=== PATIENT | female | born 1950 | race Caucasian/White ===

== ENCOUNTER → 2017-02-13 | Outpatient (CLI) | payer MEDICARE, MEDICAID ==
[~2017-02-13] MED LIST: ADENOSINE 67 MG in GIVE UN-DILUTED 0 ML IV ONE; ADENOSINE 90 MG/30 ML INJ IV ONE
== END | disposition home or self-care (01) ==
LOC: Rad HDHVI 10:25
PROVIDERS: ATTEND Internal Medicine Cardiovascular Disease
DX: I10 Essential (primary) hypertension (principal); E80.0 Hereditary erythropoietic porphyria; R42 Dizziness and giddiness; Z82.49 Family history of ischemic heart disease and other diseases of the circulatory system
CPT/HCPCS: 78452; 93005; 96374; 96375; A9500; J0153

== ENCOUNTER → 2018-01-27 | Outpatient (CLI) | payer MEDICARE, MEDICAID ==
[2018-01-27 16:10] LABS: Urine Bacteria FEW /hpf (None Seen); Urine Blood Negative /uL (Negative); Urine Hyaline Cast FEW /lpf (0 - 2); Urine Mucus FEW (None Seen); Urine Specific Gravity 1.015 (1.001-1.035); Urine WBC 448 /hpf (0 - 5); Urine WBC Clumps PRESENT /hpf (None Seen)
== END | disposition home or self-care (01) ==
LOC: LAB 11:06
PROVIDERS: ATTEND Internal Medicine
DX: N39.0 Urinary tract infection, site not specified (principal); I10 Essential (primary) hypertension; E78.00 Pure hypercholesterolemia, unspecified; E03.9 Hypothyroidism, unspecified; E11.9 Type 2 diabetes mellitus without complications
CPT/HCPCS: 81001; 87086

== ENCOUNTER → 2018-02-16 | Outpatient (CLI) | payer MEDICARE, MEDICAID ==
[2018-02-16 12:13] LABS: Basophils # (auto) 0.1 uL; Basophils % (auto) 1.3 % (0.0-2.0); Eosinophils # (auto) 0.1 uL; Hematocrit 43.5 % (36.0-46.0); Hemoglobin 14.8 g/dL (12.2-16.2); Lymphocytes # (auto) 1.6 uL; Lymphocytes % (auto) 21.6 % (10.0-50.0); Mean Corpuscular Hemoglobin 32.6 pg (28.0-32.0); Mean Corpuscular Volume 95.9 fL (80.0-100.0); Monocytes # (auto) 0.5 uL; Monocytes % (auto) 6.4 % (0.0-12.0); Neutrophils % (auto) 68.7 % (37.0-80.0); Nucleated Red Blood Cells % 0.6 %; Platelet Count (auto) 256 10^3/uL (140-450); Red Blood Cells 4.54 10^6/uL (4.0-5.20); Red Cell Distribution Width 12.8 % (11.8-14.3); White Blood Cell 7.3 10^3/uL (4.4-10.8)
[2018-02-16 12:14] LABS: Urine Blood Negative /uL (Negative); Urine Specific Gravity 1.013 (1.001-1.035)
[2018-02-16 12:24] LABS: Albumin 4.1 g/dL (3.4-5.0); BUN/Creatinine Ratio 18.4; Bilirubin, Total 0.3 mg/dL (0.2-1.0); Calcium 9.7 mg/dL (8.5-10.1); Potassium 3.9 mmol/L (3.5-5.1); Total Protein 7.6 g/dL (6.4-8.2)
[2018-02-16 12:26] LABS: Free T4 (Free Thyroxine) 1.15 ng/dL (0.89-1.76)
== END | disposition home or self-care (01) ==
LOC: LAB 08:32
PROVIDERS: ATTEND Internal Medicine
DX: E78.5 Hyperlipidemia, unspecified (principal); D64.9 Anemia, unspecified; I10 Essential (primary) hypertension; E11.9 Type 2 diabetes mellitus without complications; E55.9 Vitamin D deficiency, unspecified; E03.9 Hypothyroidism, unspecified; D51.9 Vitamin B12 deficiency anemia, unspecified; N39.0 Urinary tract infection, site not specified
CPT/HCPCS: 36415; 80053; 80061; 81003; 82306; 82607; 83036; 84439; 84443; 85025

== ENCOUNTER → 2018-04-07 | Outpatient (CLI) | payer MEDICARE, MEDICAID ==
[2018-04-07 12:43] LABS: Alanine Aminotransferase 51 U/L (13-56); Albumin 4.1 g/dL (3.4-5.0); Alkaline Phosphatase 87 U/L (45-117); Aspartate Aminotransferase 27 U/L (15-37); Bilirubin, Direct < 0.1 mg/dL (0-0.2); Bilirubin, Total 0.5 mg/dL (0.2-1.0); Total Protein 7.5 g/dL (6.4-8.2)
== END | disposition home or self-care (01) ==
LOC: LAB 10:57
PROVIDERS: ATTEND Internal Medicine Cardiovascular Disease
DX: K74.1 Hepatic sclerosis (principal); E03.9 Hypothyroidism, unspecified; I10 Essential (primary) hypertension; E78.5 Hyperlipidemia, unspecified; E11.9 Type 2 diabetes mellitus without complications; E78.00 Pure hypercholesterolemia, unspecified
CPT/HCPCS: 36415; 80076; 84439; 84443

== ENCOUNTER → 2018-07-14 | Outpatient (CLI) | payer MEDICARE, MEDICAID ==
[2018-07-14 17:23] LABS: Albumin 3.7 g/dL (3.4-5.0); BUN/Creatinine Ratio 11.8; Calcium 8.7 mg/dL (8.5-10.1)
[2018-07-14 17:37] LABS: Bilirubin, Total 0.4 mg/dL (0.2-1.0); Total Protein 7.2 g/dL (6.4-8.2)
== END | disposition home or self-care (01) ==
LOC: LAB 11:04
PROVIDERS: ATTEND Internal Medicine Cardiovascular Disease
DX: E78.5 Hyperlipidemia, unspecified (principal); I10 Essential (primary) hypertension
CPT/HCPCS: 36415; 80053; 80061

== ENCOUNTER → 2019-04-07 | Outpatient (CLI) | payer MEDICAID, MEDICARE ==
--- NOTE | 2019-04-07 14:44 | NUR ---
PT. TO CLINIC FOR CT OF BRAIN WITH AND WITHOUT CONTRAST. PT. ALSO SCHEDULED FOR ECHO. ORDERS RECEIVED AND CARRIED OUT.
[2019-04-07 14:50] VITALS: BP 143/66
--- NOTE | 2019-04-07 14:50 | NUR ---
IV insertion IV access obtained, via clean sterile technique by inserting 22 gauge catheter at after attempt(s). IV secured properly. No trauma to site. Patient tolerated procedure well. STAT CREAT. SENT.
--- NOTE | 2019-04-07 15:25 | NUR ---
PT. TO ECHO VIA AMBULATION WITH TECH.
--- NOTE | 2019-04-07 16:00 | NUR ---
PT. BACK TO CLINIC FROM ECHO.
--- NOTE | 2019-04-07 16:40 | NUR ---
PT. TO AND FR0M CT. TOLERATED PROCEDURE WELL.
[2019-04-07 16:50] VITALS: BP 143/63
--- NOTE | 2019-04-07 16:50 | NUR ---
IV removal IV DC'd with sterile technique, catheter fully intact. Pressure dressing applied to site. Patient tolerated procedure well. Discharged with aftercare instructions per MD. NOTE: PT. INSTRUCTED TO INCREASE WATER INTAKE FOR NEXT 24 HRS.
== END | disposition home or self-care (01) ==
LOC: Rad HDHVI 14:39
PROVIDERS: ATTEND Internal Medicine Cardiovascular Disease
DX: I08.1 Rheumatic disorders of both mitral and tricuspid valves (principal); R94.4 Abnormal results of kidney function studies; R55 Syncope and collapse; I10 Essential (primary) hypertension; E78.5 Hyperlipidemia, unspecified; I67.2 Cerebral atherosclerosis
CPT/HCPCS: 36415; 70470; 82565; 93306; G0463; Q9967

== ENCOUNTER → 2019-04-13 | Outpatient (CLI) | payer MEDICARE | END | disposition home or self-care (01) | LOC: Rad HDHVI 15:16 | PROVIDERS: ATTEND Internal Medicine Cardiovascular Disease | DX: E78.5 Hyperlipidemia, unspecified (principal); R55 Syncope and collapse | CPT/HCPCS: 93880 ==

== ENCOUNTER → 2019-05-17 | Outpatient (CLI) | payer MEDICARE ==
[~2019-05-17] VITALS: Ht 167.6 cm; Wt 81.6 kg
[~2019-05-17] MED LIST changes: -ADENOSINE 67 MG in GIVE UN-DILUTED 0 ML IV ONE; +ADENOSINE 69 MG in GIVE UN-DILUTED 0 ML IV ONE
== END | disposition home or self-care (01) ==
LOC: Rad HDHVI 13:23
PROVIDERS: ATTEND Internal Medicine Cardiovascular Disease
DX: I10 Essential (primary) hypertension (principal); E78.00 Pure hypercholesterolemia, unspecified
CPT/HCPCS: 78452; 93005; 96374; 96375; A9500; J0153

== ENCOUNTER → 2020-09-05 | Outpatient (CLI) | payer MEDICARE | END | disposition home or self-care (01) | LOC: Rad HDHVI 13:27 | PROVIDERS: ATTEND Internal Medicine Cardiovascular Disease | DX: I08.3 Combined rheumatic disorders of mitral, aortic and tricuspid valves (principal); I49.5 Sick sinus syndrome; R55 Syncope and collapse | CPT/HCPCS: 93306 ==

== ENCOUNTER → 2021-08-27 | Outpatient (CLI) | payer MEDICARE, OTHER ==
[~2021-08-27] VITALS: Ht 167.6 cm; Wt 74.8 kg
[~2021-08-27] MED LIST changes: +ADENOSINE 63 MG in GIVE UN-DILUTED 0 ML IV ONE; -ADENOSINE 69 MG in GIVE UN-DILUTED 0 ML IV ONE
== END | disposition home or self-care (01) ==
LOC: Rad HDHVI 13:18
PROVIDERS: ATTEND Internal Medicine Cardiovascular Disease
DX: I10 Essential (primary) hypertension (principal); E78.5 Hyperlipidemia, unspecified; E11.9 Type 2 diabetes mellitus without complications; Z82.49 Family history of ischemic heart disease and other diseases of the circulatory system
CPT/HCPCS: 78452; 93005; 96374; 96375; A9500; J0153

== ENCOUNTER 2024-09-25 23:35 | Inpatient (IN) | payer OTHER, MEDICAID ==
[~2024-09-25] VITALS: Ht 167.6 cm; Wt 73.4 kg
[~2024-09-25 23:35] MED LIST changes: +ACET300T51 PO; -ADENOSINE 63 MG in GIVE UN-DILUTED 0 ML IV ONE; -ADENOSINE 90 MG/30 ML INJ IV ONE; +BACL10TA PO; +DONETAB6 PO; +FURO20TA3 PO; +TEMA30CA PO
--- NOTE | 2024-09-25 23:54 | ECG ---
[facility] Test Date: 2024-09-25 Test Time: 23:53:02 Pat Name: ERIKA RHOADES Department: ER Room: 0298T Gender: F [employer]: OSBALDO : 1950 Requested By: MAURO PAK Order Number: [id number] Reading MD: Sebastian Angela Measurements Intervals [place] Rate: 75 P: 0 MD: 0 QRS: 37 QRSD: 91 T: 26 QT: 375 QTc: 419 Interpretive Statements Atrial fibrillation Electronically Signed On 09-28-2024 13:05:37 PST by Sebastian Angela Please click the below link to view image of tracing.
--- NOTE | 2024-09-25 23:58 | ED.PDOC ---
HPI Comments 74-year-old female came to ER due to shortness of breath. Patient has history of hypertension. States for the past 2 weeks she has been having intermittent episodes of shortness of breath. Her watch monitor showed that she was having AFib. Patient denies ever being diagnosed with AFib. Denies any acute chest pains. Patient is saturating 99% on room air Chief Complaint: Shortness of Breath Time Seen by MD: 23:57 Reviewed Notes: Nurses Notes Allergies: Coded Allergies: No Known Drug Allergy (Verified Allergy, Unknown, 02/13/17) Information Source: Patient Mode of Arrival: Ambulatory Severity: Moderate Timing: Weeks Duration: Intermittent Prehospital treatment: None Quality: Other (Palpitations) Cardiac Risk Factors: HTN PE Risk Factors: None Associated Signs and Symptoms: SOB Past Medical History PAST MEDICAL HISTORY: HTN Surgical History: Denies all surgeries [employer] History: Denies all [employer] Hx Family History Family History: Reviewed,noncontributory to illness Social History Smoker: Non-Smoker Alcohol: Denies ETOH Use Drugs: Denies Drug Use Lives In: Home Constitutional: denies: chills, diaphoresis, fatigue, fever, malaise, sweats, weakness, others EENTM: denies: blurred vision, double vision, ear bleeding, ear discharge, ear drainage, ear pain, ear ringing, eye pain, eye redness, hearing loss, mouth pain, mouth swelling, nasal discharge, nose bleeding, nose congestion, nose pain, photophobia, tearing, throat pain, throat swelling, voice changes, others Respiratory: reports: SOB at rest, shortness of breath; denies: cough, hemoptysis, orthopnea, SOB with excertion, stridor, wheezing, others Cardiovascular: reports: palpitations; denies: chest pain, dizzy spells, diaphoresis, Dyspnea on exertion, edema, irregular heart beat, left arm pain, lightheadedness, PND, syncope, others Gastrointestinal: denies: abdomen distended, abdominal pain, blood streaked bowels, constipated, diarrhea, dysphagia, difficulty swallowing, hematemesis, melena, nausea, poor appetite, poor fluid intake, rectal bleeding, rectal pain, vomiting, others Genitourinary: denies: abnormal vagina bleeding, burning, dyspareunia, dysuria, flank pain, frequency, hematuria, incontinence, pain, , vagina discharge, urgency, others Neurological: denies: dizziness, fainting, headache, left sided numbness, left sided weakness, numbness, paresthesia, pre-existing deficit, right sided numbness, right sided weakness, seizure, speech problems, tingling, tremors, weakness, others Musculoskeletal: denies: back pain, gout, joint pain, joint swelling, muscle pain, muscle stiffness, neck pain, others Integumetry: denies: bruises, change in color, change in hair/nails, dryness, laceration, lesions, lumps, rash, wounds, others Allergic/Immunocompromised: denies: Difficulty Healing, Frequent Infections, Hives, Itching, others Hematologic/Lymphatic: denies: anemia, blood clots, easy bleeding, easy bruising, swollen glands, others Endocrine: denies: excessive hunger, excessive sweating, excessive thirst, excessive urination, flushing, intolerance to cold, intolerance to heat, unexplained weight gain, unexplained weight loss, others Psychiatric: reports: anxiety; denies: bipolar disorder, depression, hopeless, panic disorder, schizophrenia, sleepless, suicidal, others Physical Exam General Appearance: No Apparent Distress, Normal HEENT: Normal ENT Inspection, Pharynx Normal, TMs Normal Neck: Full Range of Motion, Non-Tender, Normal, Normal Inspection Respiratory: Chest Non-Tender, Lungs Clear, No Accessory Muscle Use, No Respiratory Distress, Normal Breath Sounds Cardiovascular: No Edema, No JVD, No Murmur, No Gallop, Normal Peripheral Pulses, Regular Rate/Rhythm Breast Exam: Deferred Gastrointestinal: No Organomegaly, Non Tender, No Pulsatile Mass, Normal Bowel Sounds, Soft Genitalia: Deferred Pelvic: Deferred Rectal: Deferred Extremities: No calf tenderness, Normal capillary refill, Normal inspection, Normal range of motion, Non-tender, No pedal edema Musculoskeletal : Apperance: Normal 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 Was a procedure done?: No CP Differential Dx Differential Diagnosis: A-fib, Angina, Anxiety / Panic Attack, Electrolyte Disorder, Hyperventilation, Pulmonary Embolus, Sinus Tachycardia Differential Diagnosis: Angina, Chest Wall Pain, Costochondritis, Esophageal reflux/spasm, Gastritis, Myocardial Infarction X-Ray, Labs, Meds, VS Vital Signs Date Time Temp Pulse Resp B/P (MAP) Pulse Ox O2 Delivery O2 Flow Rate FiO2 09/26/24 00:48 76 09/26/24 00:41 75 09/25/24 23:53 75 09/25/24 23:43 97.6 83 20 150/88 (108) 97 09/25/24 23:43 20 99 Room Air* 0 21 Lab Test 09/26/24 00:01 Range/Units White Blood Count 10.9 H 4.4-10.8 10^3/uL Red Blood Count 4.04 4.0-5.20 10^6/uL Hemoglobin 12.9 12.2-16.2 g/dL Hematocrit 38.3 36.0-46.0 % Mean Corpuscular Volume 94.7 80.0-100.0 fL Mean Corpuscular Hemoglobin 32.0 28.0-32.0 pg Mean Corpuscular Hemoglobin Concent 33.8 32.0-36.0 g/dL Red Cell Distribution Width 13.8 11.8-14.3 % Platelet Count 228 140-450 10^3/uL Mean Platelet Volume 10.8 6.9-10.8 fL Neutrophils (%) (Auto) 70.5 37.0-80.0 % Lymphocytes (%) (Auto) 21.0 10.0-50.0 % Monocytes (%) (Auto) 6.4 0.0-12.0 % Eosinophils (%) (Auto) 0.9 0.0-7.0 % Basophils (%) (Auto) 1.2 0.0-2.0 % Neutrophils # (Auto) 7.7 1.6-8.6 10 ^3/uL Lymphocytes # (Auto) 2.3 0.4-5.4 10 ^3/uL Monocytes # (Auto) 0.7 0-1.3 10 ^3/uL Eosinophils # (Auto) 0.1 0-0.8 10 ^3/uL Basophils # (Auto) 0.1 0-0.2 10 ^3/uL Nucleated Red Blood Cells 0.1 % Prothrombin Time 10.9 9.3-11.8 sec Prothrombin Time INR 1.03 0.9-1.15 Activated Partial Thromboplast Time 24.5 24.5-34.5 SEC Sodium Level 138 136-145 mmol/L Potassium Level 3.5 3.5-5.1 mmol/L Chloride Level 104 98-107 mmol/L Carbon Dioxide Level 22 20-31 mmol/L Anion Gap 12 5-15 Blood Urea Nitrogen 16 9-23 mg/dL Creatinine 1.22 H 0.550-1.02 mg/dL Glomerular Filtration Rate Calc 47 >90 mL/min BUN/Creatinine Ratio 13.1 10.0-20.0 Serum Glucose 94 74-106 mg/dL Calcium Level 10.2 8.7-10.4 mg/dL Total Bilirubin 0.5 0.2-1.0 mg/dL Aspartate Amino Transferase (AST) 10 L 13-40 U/L Alanine Aminotransferase (ALT) < 9 7-40 U/L Alkaline Phosphatase 122 H 46-116 U/L Troponin I High Sensitivity 12 </=34 ng/L B-Type Natriuretic Peptide 90.76 0-100 pg/mL Total Protein 7.5 5.7-8.2 g/dL Albumin 4.7 3.2-4.8 g/dL Thyroid Stimulating Hormone (TSH) 4.71 0.55-4.78 uIU/mL Free Thyroxine (T4) Calculated Pending CHEST RADIOGRAPH Indication: SOB Technique: Single frontal view of the chest was obtained COMPARISON: None FINDINGS: Lines and Tubes: None Lungs: Clear Pleura: No effusion. no pneumothorax. Cardiomediastinal contours: Unremarkable Bones: Unremarkable IMPRESSION: 1. No acute disease. Time of 1ST Reevaluation: 23:53 Reevaluation 1ST: Unchanged Patient Education/Counseling: Diagnosis, Treatment Family Education/Counseling: No Family Present Departure 1 Departure Time of Disposition: 01:22 Impression: Primary Impression: New onset atrial fibrillation Additional Impression: Congestive heart disease Disposition: 09 ADMITTED INPATIENT Condition: Guarded Critical Care Note Critical Care Time?: Yes (35 min-critical care time only) Critical care comment: Total critical care time: Approximately 36 minutes Due to a high probability of clinically significant, life threatening deteriora tion, the patient required my highest level of preparedness to intervene emergently and I personally spent this critical care time directly and personally managing the patient. This critical care time included obtaining a history; examining the patient; pulse oximetry; ordering and review of studies; arranging urgent treatment with development of a management plan; evaluation of patient's response to treatment; frequent reassessment; and, discussions with other providers. This critical care time was performed to assess and manage the high probability of imminent, life-threatening deterioration that could result in multi-organ failure. It was exclusive of separately billable procedures and treating other patients. Stability Stability form required: No Heart Score Heart Score: Heart Score Response (Comments) Value History Moderate Suspicious 1 EKG Repolarization Disturb 1 Age >65 2 Risk Factors 1 or 2 risk factors 1 Troponin Normal limit 0 Total 5 I personally scribed for MAURO PAK MD ([email or web address]) on 09/25/24 at 23:58. Electronically submitted by Kal Burns ([email or web address]). I personally scribed for MAURO PAK MD ([email or web address]) on 09/26/24 at 00:41. Electronically submitted by Kal Burns ([email or web address]). MAURO PAK MD Sep 25, 2024 23:58
--- NOTE | 2024-09-26 00:22 | DVH ---
CHEST RADIOGRAPH Indication: SOB Technique: Single frontal view of the chest was obtained COMPARISON: None FINDINGS: Lines and Tubes: None Lungs: Clear Pleura: No effusion. No pneumothorax. Cardiomediastinal contours: Unremarkable Bones: Unremarkable IMPRESSION: 1. No acute disease.
[2024-09-26 00:25] LABS: Basophils # (auto) 0.1 10 ^3/uL (0-0.2); Basophils % (auto) 1.2 % (0.0-2.0); Eosinophils # (auto) 0.1 10 ^3/uL (0-0.8); Eosinophils % (auto) 0.9 % (0.0-7.0); Hematocrit 38.3 % (36.0-46.0); Hemoglobin 12.9 g/dL (12.2-16.2); Lymphocytes # (auto) 2.3 10 ^3/uL (0.4-5.4); Mean Corpuscular Hgb Conc. 33.8 g/dL (32.0-36.0); Mean Corpuscular Volume 94.7 fL (80.0-100.0); Monocytes # (auto) 0.7 10 ^3/uL (0-1.3); Monocytes % (auto) 6.4 % (0.0-12.0); Neutrophils # (auto) 7.7 10 ^3/uL (1.6-8.6); Neutrophils % (auto) 70.5 % (37.0-80.0); Nucleated Red Blood Cells % 0.1 %; Platelet Count (auto) 228 10^3/uL (140-450); Red Blood Cells 4.04 10^6/uL (4.0-5.20); Red Cell Distribution Width 13.8 % (11.8-14.3); White Blood Cell 10.9 10^3/uL (4.4-10.8)
[2024-09-26 00:39] LABS: Albumin 4.7 g/dL (3.2-4.8); Anion Gap 12 (5-15); BUN/Creatinine Ratio 13.1 (10.0-20.0); Blood Urea Nitrogen 16 mg/dL (9-23); Calcium 10.2 mg/dL (8.7-10.4); Carbon Dioxide 22 mmol/L (20-31); Chloride 104 mmol/L (98-107); Glucose 94 mg/dL (74-106); Potassium 3.5 mmol/L (3.5-5.1); Sodium 138 mmol/L (136-145)
[2024-09-26 00:40] LABS: Bilirubin, Total 0.5 mg/dL (0.2-1.0); Total Protein 7.5 g/dL (5.7-8.2)
[2024-09-26 00:42] LABS: INR 1.03 (0.9-1.15); Partial Thromboplastin Time 24.5 SEC (24.5-34.5); Prothrombin Time 10.9 sec (9.3-11.8)
[2024-09-26 00:54] LABS: Alanine Aminotransferase < 9 U/L (7-40); Alkaline Phosphatase 122 U/L (46-116); Aspartate Aminotransferase 10 U/L (13-40)
[2024-09-26 07:05] VITALS: PULSE 85; RESP 16; O2SAT 98
[2024-09-26 08:45] VITALS: RESP 17; O2SAT 99
--- NOTE | 2024-09-26 11:00 | DVHHP2 ---
History of Present Illness History of Present Illness 74-year-old female w PMHx HTN came to ER due to shortness of breath. States for the past 2 weeks she has been having intermittent episodes of shortness of breath. She has been unable to sleep due to orthopnea. She was experiencing shortness of breath, dyspnea on exertion NYHA 2-3, mildly worsening leg swelling bilaterally, orthopnea. Her watch monitor showed that she was having irregular heartbeat . She has family history of heart disease but herself has never been diagnosed with heart failure, never had MS, and no history of AFib/arrhyth mias/irregular rhythms. Denies any acute chest pains. She had mild upper respiratory symptoms few days ago including runny nose, dry cough. Patient denies sick contacts, nausea and vomiting, diarrhea or constipation, abdominal pains, decreased p.o. tolerance,. Patient denies any illicit substance abuse. Review of Systems Review of Systems As per HPI Allergies: Coded Allergies: No Known Drug Allergy (Verified Allergy, Unknown, 02/13/17) Exam Vital Signs Vital Signs Date Time Temp Pulse Resp B/P (MAP) Pulse Ox O2 Delivery O2 Flow Rate FiO2 09/26/24 08:55 97.8 91 16 102/72 (82) 98 97.8 09/26/24 08:45 Room Air* 0 21 Exam GEN: Healthy appearing, well-developed, NAD. HEENT: NC/AT; MMM. CV: RRR, no m/r/g. LUNGS: Rales lower lobes bilaterally. ABD: Soft, NT/ND, NBS, no masses or organomegaly. EXT: skin Warm, well perfused. no rashes. Pitting edema 1+ bilaterally NEURO: Ambulating with no limitations. No focal deficits. Labs/Xrays Labs Test 09/26/24 01:24 09/26/24 00:01 Range/Units Troponin I High Sensitivity 12 </=34 ng/L White Blood Count 10.9 H 4.4-10.8 10^3/uL Red Blood Count 4.04 4.0-5.20 10^6/uL Hemoglobin 12.9 12.2-16.2 g/dL Hematocrit 38.3 36.0-46.0 % Mean Corpuscular Volume 94.7 80.0-100.0 fL Mean Corpuscular Hemoglobin 32.0 28.0-32.0 pg Mean Corpuscular Hemoglobin Concent 33.8 32.0-36.0 g/dL Red Cell Distribution Width 13.8 11.8-14.3 % Platelet Count 228 140-450 10^3/uL Mean Platelet Volume 10.8 6.9-10.8 fL Neutrophils (%) (Auto) 70.5 37.0-80.0 % Lymphocytes (%) (Auto) 21.0 10.0-50.0 % Monocytes (%) (Auto) 6.4 0.0-12.0 % Eosinophils (%) (Auto) 0.9 0.0-7.0 % Basophils (%) (Auto) 1.2 0.0-2.0 % Neutrophils # (Auto) 7.7 1.6-8.6 10 ^3/uL Lymphocytes # (Auto) 2.3 0.4-5.4 10 ^3/uL Monocytes # (Auto) 0.7 0-1.3 10 ^3/uL Eosinophils # (Auto) 0.1 0-0.8 10 ^3/uL Basophils # (Auto) 0.1 0-0.2 10 ^3/uL Nucleated Red Blood Cells 0.1 % Prothrombin Time 10.9 9.3-11.8 sec Prothrombin Time INR 1.03 0.9-1.15 Activated Partial Thromboplast Time 24.5 24.5-34.5 SEC Sodium Level 138 136-145 mmol/L Potassium Level 3.5 3.5-5.1 mmol/L Chloride Level 104 98-107 mmol/L Carbon Dioxide Level 22 20-31 mmol/L Anion Gap 12 5-15 Blood Urea Nitrogen 16 9-23 mg/dL Creatinine 1.22 H 0.550-1.02 mg/dL Glomerular Filtration Rate Calc 47 >90 mL/min BUN/Creatinine Ratio 13.1 10.0-20.0 Serum Glucose 94 74-106 mg/dL Calcium Level 10.2 8.7-10.4 mg/dL Total Bilirubin 0.5 0.2-1.0 mg/dL Aspartate Amino Transferase (AST) 10 L 13-40 U/L Alanine Aminotransferase (ALT) < 9 7-40 U/L Alkaline Phosphatase 122 H 46-116 U/L B-Type Natriuretic Peptide 90.76 0-100 pg/mL Total Protein 7.5 5.7-8.2 g/dL Albumin 4.7 3.2-4.8 g/dL Thyroid Stimulating Hormone (TSH) 4.71 0.55-4.78 uIU/mL Assessment/Plan Assessment/Plan #Acute systolic heart failure likely -- Tn neg, BNP upper limit of normal, rales BL, 1+ pitting edemaBL, dyspnea, orthopnea, HOLLY NYHA 2-3, - Lasix 20 IV b.i.d., echo, outpatient cardiology unless echo with significant abnormal findings #AFib, without RVR- chads Vasc 3, rate controolled , no urgent need for betablockers. start full-dose Lovenox. may need outpatient DOACs. #Leukocytosis--WBC 10.8, this could be from recent URI, we will monitor. #CKD-creatinine 1.22 on admit, similar to prior levels, patient has CKD, full need outpatient follow-up with Nephrology #Uncontrolled hypertension we will monitor and add medications as needed Diet cardiac GI prophylaxis-tolerating p.o. DVT prophylaxis full-dose Lovenox for AFib Med tele Full code Plan discussed with: Patient My Orders Orders - HARRISON TRAYLOR MD Procedure Category Date Status Time Admit ADMIT 09/26/24 Transmitted 10:48 Code Status CODE 09/26/24 Transmitted 10:48 Date of Service: Sep 26, 2024 Billing Provider: HARRISON TRAYLOR MD Common Visit Codes: [id number] INP/OBS CARE (HIGH) HARRISON TRAYLOR MD Sep 26, 2024 11:00
[2024-09-26] MEDS: DONEPEZIL HYDROCHLORIDE 5 MG TAB PO ONE (11:29)
[2024-09-26 16:22] VITALS: BP 153/75; PULSE 80; RESP 20; TEMP 97.9; O2SAT 98
[2024-09-26] MEDS ORDERED: HYDR-4902 PO (17:03)
[2024-09-26] MEDS: FUROSEMIDE 20 MG/2 ML VIAL IV SCH (17:59)
[2024-09-26 20:00] VITALS: PULSE 111; PULSE 80
[2024-09-26 21:00] VITALS: BP 155/70; PULSE 73; RESP 19; TEMP 98.2; O2SAT 96
[2024-09-26 21:35] VITALS: BP 137/60; PULSE 88; RESP 18; O2SAT 98
[2024-09-26 22:08] LABS: Urine Bacteria None Seen /hpf (None Seen)
[2024-09-26 22:21] LABS: Urine Blood 1+ /uL (Negative); Urine Clarity Ex.Turbid (Clear); Urine Protein, UAD Negative (Negative); Urine Specific Gravity 1.006 (1.001-1.035); Urine Squamous Epithelial Cell None Seen /hpf (<5); Urine Urobilinogen Normal (Negative); Urine WBC 1859 /hpf (0 - 5); Urine WBC Clumps PRESENT /hpf (None Seen); Urine pH 5.5 (5.0-9.0)
[2024-09-26 22:23] LABS: Urine Color Light-Yellow (Yellow)
[2024-09-26 22:34] LABS: Amphetamine Screen, Urine Neg (NEGATIVE); Barbiturate Scree,Urine Neg (NEGATIVE); Benzodiazephine Screen, Urine Neg (NEGATIVE); Cannabinoid Screen, Urine Neg (NEGATIVE); Cocaine Screen, Urine Neg (NEGATIVE); Opiate Scree,Urine Neg (NEGATIVE); Phencyclidine Screen, Urine Neg (NEGATIVE)
[2024-09-26] MEDS: MELATONIN 5 MG TAB PO SCH (22:47)
[2024-09-27] VITALS (8 sets, daily range): BP systolic 119–161; BP diastolic 51–96; PULSE 70–92; RESP 14–19; TEMP 97.5–98.4; O2SAT 96–100
[2024-09-27] MEDS: cefTRIAXone 1GM/50ML D5W 50 ML IV SCH (03:16)
[2024-09-27 11:04] LABS: Chloride 103 mmol/L (98-107); Potassium 3.9 mmol/L (3.5-5.1); Sodium 140 mmol/L (136-145)
[2024-09-27 11:05] LABS: Anion Gap 9 (5-15); Calcium 10.2 mg/dL (8.7-10.4); Carbon Dioxide 28 mmol/L (20-31)
[2024-09-27 11:10] LABS: BUN/Creatinine Ratio 12.8 (10.0-20.0); Blood Urea Nitrogen 16 mg/dL (9-23); Glucose 104 mg/dL (74-106); Triglycerides 119 mg/dL (< 150)
[2024-09-27 11:11] LABS: Magnesium 2.2 mg/dL (1.6-2.6)
[2024-09-27 11:15] LABS: Cholesterol 211 mg/dL (< 200); HDL Cholesterol 37 mg/dL (40-59); LDL Cholesterol 151 mg/dL (< 100)
[2024-09-27 11:17] LABS: Basophils # (auto) 0.1 10 ^3/uL (0-0.2); Basophils % (auto) 0.9 % (0.0-2.0); Eosinophils # (auto) 0 10 ^3/uL (0-0.8); Eosinophils % (auto) 0.4 % (0.0-7.0); Hematocrit 37.5 % (36.0-46.0); Lymphocytes # (auto) 0.8 10 ^3/uL (0.4-5.4); Lymphocytes % (auto) 8.9 % (10.0-50.0); Mean Corpuscular Hemoglobin 31.9 pg (28.0-32.0); Mean Corpuscular Hgb Conc. 34.5 g/dL (32.0-36.0); Mean Corpuscular Volume 92.3 fL (80.0-100.0); Monocytes # (auto) 0.6 10 ^3/uL (0-1.3); Monocytes % (auto) 6.8 % (0.0-12.0); Neutrophils # (auto) 7.1 10 ^3/uL (1.6-8.6); Platelet Count (auto) 286 10^3/uL (140-450); Red Blood Cells 4.06 10^6/uL (4.0-5.20); Red Cell Distribution Width 13.4 % (11.8-14.3); White Blood Cell 8.6 10^3/uL (4.4-10.8)
--- NOTE | 2024-09-27 13:15 | DVHSR ---
APPROVED REPORT EXAM: Two-dimensional and M-mode echocardiogram with Doppler and color Doppler. Blood Pressure: 123/57 mmHg INDICATION ? CHF RISK FACTORS Height: 66, Weight: 164 DIMENSIONS LVDd4.0 (3.8-5.7cm)LA (2D)4.5 (1.9-4.0cm)Aortic Root2.9 (2.0-3.7cm) LVDs2.8 (2.5-4.0cm)LA (MM) (1.9-4.0cm)Aortic Cusp Exc1.0 (1.5-2.0cm) EF (%) 60.0 (55-70%)Rt. Atrium4.5 (1.9-4.0cm)Asc. Aorta cm IVSd1.0 (0.7-1.1cm)RV (D) (1.8-2.4cm) Mitral Valve MitralMitral Stenosis E wave1.20m/sMV Mean GR.mmHg A wavem/sMV Peak GR.107mmHg E/A ratio0.02D MVAcm2 DECEL TimemsPRESS 1/2 [id number] IVRTmsDop MVA2.56cm2 Aortic Valve Aortic ValveAortic Stenosis V10.72m/Tom Mean GR.5mmHg V21.44m/Tom Peak GR.8mmHg LVOT Diameter2.2 (1.8-2.4cm)Doppler AVA1.90cm2 Pulmonic Valve V20.72m/s Tricuspid Valve TR Velocity2.20m/s [id number] Conclusion Normal left ventricular size and dimension. Normal right ventricular systolic pressure estimated eje ction fraction 55%. There is a grade 1 diastolic dysfunction. Normal right ventricular size and dimension. Normal right ventricular systolic function. Normal biatrial size and dimension. Normal aortic valve structure and function. Normal mitral valve structure and function. Normal tricuspid valve structure and function. The pulmonary valve is grossly normal. No pericardial effusion.
--- NOTE | 2024-09-27 13:26 | DVHPN2 ---
Progress Note Date Seen: Sep 27, 2024 Medical Necessity Reason Pt with a Central, PICC or Fol: No Subjective Patient reports: No new complaints Review of Systems: HEENT:Normal, CVS:Normal, RESPIRATORY:Normal, GI:Normal, :Normal, MSK:Normal, NEURO:Normal Objective vital signs Vital Sign Date Time Temp Pulse Resp B/P (MAP) Pulse Ox O2 Delivery O2 Flow Rate FiO2 09/27/24 12:47 97.7 90 16 127/69 (88) 97 97.7 09/26/24 20:00 Nasal Cannula* 2 28 Total Intake and Output 09/26/24 09/26/24 09/27/24 15:00 23:00 07:00 Intake Total 50 ml Output Total 200 ml Balance -200 ml 50 ml medications Current Medications Medications Dose Ordered Sig/Radha Route Start Time Stop Time Status Last Admin Dose Admin Donepezil HCl 10 mg HS PO 09/27/24 22:00 Furosemide 20 mg BIDD IV 09/26/24 18:00 09/27/24 05:32 20 MG Melatonin 5 mg HS PO 09/26/24 22:00 09/26/24 22:47 5 MG Ceftriaxone Sodium 50 ml @ 100 mls/hr DAILY IV 09/27/24 03:00 09/27/24 03:16 100 MLS/HR Metoprolol Succinate 25 mg DAILY PO 09/28/24 10:00 Enoxaparin Sodium 70 mg Q12HR SC 09/27/24 22:00 Examination: GENERAL:Normal, HEENT:Normal, NECK:Normal, LUNGS:Normal, CVS:Normal, CVS:Abnormal (irregular), ABDOMEN:Normal, MSK:Normal, SKIN:Normal, NEURO:Normal, :Normal laboratory and microbiology Laboratory Tests 09/27/24 10:25 Test 09/27/24 10:25 Range/Units Serum Glucose 104 74-106 mg/dL Problem List/Assessment/Plan Problem List/Assessment/Plan #1 a fib with rvr: lopressor, lovenox #2 htn #3 uti: iv rocephin #4 ckd stage 3 advance care planning- full code- time spent 19 mins Plan discussed with: Patient My Orders My Orders Orders - THEA HOWELL MD Procedure Category Date Status Time Metoprolol Xl PHA 09/28/24 Verified Succinate (Toprol Xl) 10:00 Lorazepam Tablet PHA 09/27/24 Verified (Ativan Tablet) 13:30 Acetaminophen Tablet PHA 09/27/24 Verified (Tylenol Tablet) 13:30 Urine Bacterial ELDON 09/27/24 Verified Culture 13:21 Date of Service: Sep 27, 2024 Billing Provider: THEA HOWELL MD Common Visit Codes: [id number] INP/OBS CARE(HIGH) Secondary Visit Codes: [id number] CARE PLAN 30 MINUTES THEA HOWELL MD Sep 27, 2024 13:26
--- NOTE | 2024-09-27 14:07 | DVHCONRES ---
Date Seen: Sep 27, 2024 Resident Creating Document: MICHAEL SUNG RESIDENT Reason for Consultation ? AFib History of Present Illness Amaya Pena is a 74-year-old female with a significant PMH of HTN presented to the ED with the chief complaints of worsened shortness of Breath. Patient reported she has been having intermittent SOB for past 2 weeks, but for past 2 days patient has been having worsening SOB while lying down and sleeping (orthopnea and PND), SOB with a mild exertion with mild bilateral lower extremity swelling for past 2 weeks. Patient reported she has been noted that her heart rate is racing and her watch showed irregular heartbeat, patient is more consent which prompted her to visit ED. on my assessment patient reported flu-like symptoms in last couple of weeks. But denies nausea, vomiting, chest pain, dizziness, diaphoresis and other acute associated symptoms. Past Medical History HTN Past Surgical History Hysterectomy, tonsillectomy Family History: Cardiovascular disease G8 MOTHER G8 FATHER FH: breast cancer G8 MOTHER great grandma Family History Father and mother both of heart issues, both grandfathers in their 50s due to heart issues Social History Lives alone. Denies smoking, alcohol and other drug abuse Allergies: Coded Allergies: No Known Drug Allergy (Verified Allergy, Unknown, 02/13/17) Home Meds Reported Medications Furosemide (Furosemide) 20 Mg Tab, 20 MG PO BIDD for 30 Days, MG 09/26/24 Hydrocodone-Acetaminophen (Hydrocodone Bitartrate/AC 5-325 mg) 1 Tab Tab, 1 TAB PO Q8HPRN PRN for PAIN SCALE 7 THRU 10, TAB 09/26/24 Current Medications Current Medications Medications (Trade) Dose Ordered Sig/Radha Route PRN Reason Start Time Stop Time Status Last Admin Donepezil HCl (Aricept Tablet) 10 mg HS PO 09/27/24 22:00 Furosemide (Lasix Injection) 20 mg BIDD IV 09/26/24 18:00 09/27/24 13:25 DC 09/27/24 05:32 Melatonin (Melatonin) 5 mg HS PO 09/26/24 22:00 09/26/24 22:47 Ceftriaxone Sodium 50 ml @ 100 mls/hr DAILY IV 09/27/24 03:00 09/27/24 03:16 Metoprolol Succinate (Toprol Xl) 25 mg DAILY PO 09/28/24 10:00 09/27/24 13:25 DC Enoxaparin Sodium (Lovenox) 70 mg Q12HR SC 09/27/24 22:00 Metoprolol Succinate (Toprol Xl) 50 mg DAILY PO 09/28/24 10:00 UNV Lorazepam (Ativan Tablet) 0.5 mg Q8HP PRN PO ANXIETY 09/27/24 13:30 UNV Acetaminophen (Tylenol Tablet) 650 mg Q6HP PRN PO MILD PAIN (1-3 PAIN SCALE) 09/27/24 13:30 UNV Atorvastatin Calcium (Lipitor) 20 mg HS PO 09/27/24 22:00 UNV Review of Systems Patient seen and examined at the bedside. Reported improvement in her symptoms since admission, reported no new complaints. Vital Signs Vital Signs Date Time Temp Pulse Resp B/P (MAP) Pulse Ox O2 Delivery O2 Flow Rate FiO2 09/27/24 12:47 97.7 90 16 127/69 (88) 97 97.7 09/26/24 20:00 Nasal Cannula* 2 28 Physical Exam Pt is lying on bed General Appearance: Alert, Oriented X3, Cooperative, Not in acute distress HEENT: Atraumatic, Mucous membranes moist/pink Respiratory: Clear to auscultation, Normal air movement, decreased sounds Cardiovascular: Irregularly irregular rate, Normal S1, Normal S2, No murmurs Abdominal: Active bowel sounds, Soft, no distention, no tenderness Extremities: No edema, Normal pulses, No tenderness/swelling Skin: No Significant rash, except past surgical scars Neuro: Normal speech, sensorimotor deficits none Psych/Mental Status: Mental status NL, Mood NL Nurse was there as vladimirne during examination Labs/Diagnostic Data Labs Test 09/27/24 10:25 09/26/24 21:15 09/26/24 01:24 09/26/24 00:01 Range/Units White Blood Count 8.6 4.4-10.8 10^3/uL Red Blood Count 4.06 4.0-5.20 10^6/uL Hemoglobin 13.0 12.2-16.2 g/dL Hematocrit 37.5 36.0-46.0 % Mean Corpuscular Volume 92.3 80.0-100.0 fL Mean Corpuscular Hemoglobin 31.9 28.0-32.0 pg Mean Corpuscular Hemoglobin Concent 34.5 32.0-36.0 g/dL Red Cell Distribution Width 13.4 11.8-14.3 % Platelet Count 286 140-450 10^3/uL Mean Platelet Volume 9.9 6.9-10.8 fL Neutrophils (%) (Auto) 83.0 H 37.0-80.0 % Lymphocytes (%) (Auto) 8.9 L 10.0-50.0 % Monocytes (%) (Auto) 6.8 0.0-12.0 % Eosinophils (%) (Auto) 0.4 0.0-7.0 % Basophils (%) (Auto) 0.9 0.0-2.0 % Neutrophils # (Auto) 7.1 1.6-8.6 10 ^3/uL Lymphocytes # (Auto) 0.8 0.4-5.4 10 ^3/uL Monocytes # (Auto) 0.6 0-1.3 10 ^3/uL Eosinophils # (Auto) 0 0-0.8 10 ^3/uL Basophils # (Auto) 0.1 0-0.2 10 ^3/uL Nucleated Red Blood Cells 0.0 % Sodium Level 140 136-145 mmol/L Potassium Level 3.9 3.5-5.1 mmol/L Chloride Level 103 98-107 mmol/L Carbon Dioxide Level 28 20-31 mmol/L Anion Gap 9 5-15 Blood Urea Nitrogen 16 9-23 mg/dL Creatinine 1.25 H 0.550-1.02 mg/dL Glomerular Filtration Rate Calc 45 >90 mL/min BUN/Creatinine Ratio 12.8 10.0-20.0 Serum Glucose 104 74-106 mg/dL Hemoglobin A1c 5.5 <5.7 % A1C Calcium Level 10.2 8.7-10.4 mg/dL Magnesium Level 2.2 1.6-2.6 mg/dL Triglycerides Level 119 < 150 mg/dL Cholesterol Level 211 H < 200 mg/dL LDL Cholesterol 151 H < 100 mg/dL HDL Cholesterol 37 L 40-59 mg/dL Urine Color Light-yellow Yellow Urine Clarity Ex.turbid Clear Urine pH 5.5 5.0-9.0 Urine Specific [place] 1.006 1.001-1.035 Urine Protein Negative Negative Urine Ketones Negative Negative Urine Blood 1+ H Negative /uL Urine Nitrite Negative Negative Urine Bilirubin Negative Negative Urine Urobilinogen Normal Negative mg/dL Urine Leukocyte Esterase 3+ Negative /uL Urine RBC 10 0 - 4 /hpf Urine WBC 1859 0 - 5 /hpf Urine WBC Clumps Present None Seen /hpf Urine Squamous Epithelial Cells None seen <5 /hpf Urine Bacteria None seen None Seen /hpf Urine Glucose Normal Normal mg/dL Urine Opiates Screen Neg NEGATIVE Urine Fentanyl Screen Neg NEGATIVE Urine Barbiturates Screen Neg NEGATIVE Urine Phencyclidine Screen Neg NEGATIVE Urine Amphetamines Screen Neg NEGATIVE Urine Benzodiazepines Screen Neg NEGATIVE Urine Cocaine Screen Neg NEGATIVE Urine Cannabinoids Screen Neg NEGATIVE Troponin I High Sensitivity 12 </=34 ng/L Prothrombin Time 10.9 9.3-11.8 sec Prothrombin Time INR 1.03 0.9-1.15 Activated Partial Thromboplast Time 24.5 24.5-34.5 SEC Total Bilirubin 0.5 0.2-1.0 mg/dL Aspartate Amino Transferase (AST) 10 L 13-40 U/L Alanine Aminotransferase (ALT) < 9 7-40 U/L Alkaline Phosphatase 122 H 46-116 U/L B-Type Natriuretic Peptide 90.76 0-100 pg/mL Total Protein 7.5 5.7-8.2 g/dL Albumin 4.7 3.2-4.8 g/dL Thyroid Stimulating Hormone (TSH) 4.71 0.55-4.78 uIU/mL Free Thyroxine (T4) Calculated 1.19 0.89-1.76 ng/dL Assessment New unspecified AFib, stage III with secondary hypercoagulable state Ruled out structural heart disease Uncontrolled HTN Dyslipidemia MAXIMILIANO likely on CKD Acute complicated UTI Plan/Recommendation We will continue with the following plan/recommendations (Dr. Gallegos): Continue monitoring on telemetry unit, notify if sudden changes Echocardiogram showed normal LVEF 55% with a grade 1 diastolic dysfunction Rate-controlling agents, metoprolol 25 mg along with therapeutic Lovenox BP control & Lipid-lowering agent, Lipitor Scheduled stress test Risk factor modification, counseled Dietary changes Limiting sodium intake Strict INOs DVT/VTE prophylaxis Case discussed with Dr. Gates, optimal medical treatment, and scheduled a stress test. Plan discussed with: Patient Visit Coding Cardiology RES Date of Service: Sep 27, 2024 Billing Provider: ROYCE GATES MD Cardiology Common Codes: [id number] INP/OBS CARE (Mod) MICHAEL SUNG RESIDENT Sep 27, 2024 14:07
[2024-09-27] MEDS: LORazepam 0.5 MG TAB PO PRN (15:30)
[2024-09-27] MEDS: METOPROLOL SUCCINATE XL 50 MG TAB PO ONE (15:30)
[2024-09-27 20:59] LABS: COVID19 ANTIGEN SOFIA FIA NEGATIVE (NEGATIVE)
[2024-09-27 21:21] LABS: Rapid Influenza A Negative (Negative); Rapid Influenza B Negative (Negative)
[2024-09-27] MEDS: ACETAMINOPHEN 325 MG TAB PO PRN (21:39)
[2024-09-27] MEDS: DONEPEZIL HYDROCHLORIDE 5 MG TAB PO SCH (21:39)
[2024-09-27] MEDS: ATORVASTATIN 20 MG TAB PO SCH (21:39)
[2024-09-27] MEDS: ENOXAPARIN SOD 80 MG/0.8ML SYRINGE SC SCH (21:47)
[2024-09-28] VITALS (10 sets, daily range): BP systolic 132–163; BP diastolic 69–80; PULSE 67–108; RESP 12–19; TEMP 97.7–98.6; O2SAT 90–100
[2024-09-28] MEDS: REGADENOSON 0.4 MG/5 ML SYRG IV ONE ×2 (08:21→09:04)
[2024-09-28] MEDS ORDERED: METOPROLOL SUCCINATE XL 50 MG TAB PO SCH ×2 (10:00)
[2024-09-28] MEDS: IODIXANOL 320MG/ML 100ML BTL IV ONE (10:42)
[2024-09-28] MEDS: GELATIN 1 SPONGE SIZE 50 TOP ONE (10:42)
[2024-09-28] MEDS: ANGIOMAX 250 MG VIAL IV ONE (10:49)
[2024-09-28] MEDS: HEPARIN SODIUM (PORCINE) 5000 UNITS/ML 1ML VIAL ONE (10:49)
[2024-09-28] MEDS: VERAPAMIL 2.5MG/ML INJ 2ML VIAL IV ONE (10:50)
[2024-09-28] MEDS: MIDAZOLAM HCL 2MG/2ML 2ml VIAL (1mg/ml) ONE (10:50)
[2024-09-28] MEDS: LIDOCAINE 2%HCL (LOCAL ANESTH.) INJ 20ML MDV ONE (10:50)
[2024-09-28] MEDS: fentaNYL CITRATE 100 MCG/2 ML VL ONE (10:50)
[2024-09-28] MEDS: SODIUM CHL 0.9% 0 ML ONE (10:51)
--- NOTE | 2024-09-28 11:11 | ECG ---
[facility] Test Date: 2024-09-26 Test Time: 00:48:51 Pat Name: ERIKA RHOADES Department: ER Room: 0298T B Gender: F Administration Vice President: LENA : 1950 Requested By: MAURO PAK Order Number: [id number] Reading MD: Sebastian Angela Measurements Intervals [place] Rate: 76 P: 0 IN: 0 QRS: 41 QRSD: 85 T: 8 QT: 377 QTc: 424 Interpretive Statements Atrial fibrillation Probable anteroseptal infarct, old Borderline T abnormalities, inferior leads Electronically Signed On 09-28-2024 13:05:44 PST by Sebastian Angela Please click the below link to view image of tracing.
--- NOTE | 2024-09-28 11:11 | RESUS ---
CODE ASSIST ASSESSSMENT Initial Information Code Assist Date: Sep 28, 2024 Code Assist Time: 07:54 Location of Arrest: Cardio Stress Test Room [facility] to stress lab for stress test Provider Name LENA Mendoza Time Notified: 07:54 Time PMD returned call: 07:54 Crash Cart Opened and Supplies: No Situation Staff concerned/worried, speci: HR <40, Non-responsive, Change LOC, Seizures Situation comment: Patient undergoing a lexiscan stress test when supervising RN noted patient to become unresponsive, postured and making repetative oral sounds. Per TAE Barry, she also noticed patient became bradycardic with HR 40. Upon code team arrival, patient was awake, responsive and A&Ox4. Assessment Temperature (Fahrenheit): 97.9 Blood Pressure Systolic: 116 Blood Pressure Diastolic: 78 Respiratory Rate: 16 O2 Sat by Pulse Oximetry: 98 Assessment comment: Patient is awake, responding appropriately Outcome Outcome: Problem Resolved Team Members Team Members LENA Morrison ICU insurance assistantTAE Laboy RN [facility] Sonam Stein Sep 28, 2024 11:11
--- NOTE | 2024-09-28 11:27 | DVHPN2 ---
Progress Note Date Seen: Sep 28, 2024 Medical Necessity Reason Pt with a Central, PICC or Fol: No Subjective Patient reports: No new complaints Review of Systems: HEENT:Normal, CVS:Normal, RESPIRATORY:Normal, GI:Normal, :Normal, MSK:Normal, NEURO:Normal Objective vital signs Vital Sign Date Time Temp Pulse Resp B/P (MAP) Pulse Ox O2 Delivery O2 Flow Rate FiO2 09/28/24 11:11 16 09/28/24 05:00 97.9 86 143/80 (101) 98 97.9 09/27/24 20:00 Room Air* 0 21 Total Intake and Output 09/27/24 09/27/24 09/28/24 15:00 23:00 07:00 Intake Total 300 ml 0 ml Output Total 600 ml 300 ml Balance -300 ml -300 ml medications Current Medications Medications Dose Ordered Sig/Radha Route Start Time Stop Time Status Last Admin Dose Admin Donepezil HCl 10 mg HS PO 09/27/24 22:00 09/27/24 21:39 10 MG Ceftriaxone Sodium 50 ml @ 100 mls/hr DAILY IV 09/27/24 03:00 09/27/24 03:16 100 MLS/HR Enoxaparin Sodium 70 mg Q12HR SC 09/27/24 22:00 09/27/24 21:47 70 MG Metoprolol Succinate 50 mg DAILY PO 09/28/24 10:00 Lorazepam 0.5 mg Q8HP PRN PO 09/27/24 13:30 09/27/24 15:30 0.5 MG Acetaminophen 650 mg Q6HP PRN PO 09/27/24 13:30 09/27/24 21:39 650 MG Atorvastatin Calcium 20 mg HS PO 09/27/24 22:00 09/27/24 21:39 20 MG Examination: GENERAL:Normal, HEENT:Normal, NECK:Normal, LUNGS:Normal, CVS:Normal, CVS:Abnormal (irregular), ABDOMEN:Normal, MSK:Normal, SKIN:Normal, NEURO:Normal, :Normal laboratory and microbiology Laboratory Tests 09/27/24 10:25 Test 09/27/24 10:25 Range/Units Serum Glucose 104 74-106 mg/dL Problem List/Assessment/Plan Problem List/Assessment/Plan #1 a fib : lopressor, lovenox #2 htn #3 uti: iv rocephin #4 ckd stage 3 #5 s/p bradycardia during stress test, now scheduled for c angio advance care planning- full code- time spent 19 mins Plan discussed with: Other (rn) My Orders My Orders Orders - THEA HOWELL MD Procedure Category Date Status Time Lorazepam Tablet PHA 09/27/24 In Process (Ativan Tablet) 13:30 Acetaminophen Tablet PHA 09/27/24 In Process (Tylenol Tablet) 13:30 Urine Bacterial ELDON 09/27/24 Logged Culture 13:21 Atorvastatin (Lipitor) PHA 09/27/24 In Process 22:00 Metoprolol Xl PHA 09/29/24 Logged Succinate (Toprol Xl) 10:00 Basic Metabolic Panel LAB 09/29/24 Verified 06:00 Complete Blood Count LAB 09/29/24 Verified 06:00 Date of Service: Sep 28, 2024 Billing Provider: THEA HOWELL MD Common Visit Codes: [id number] INP/OBS CARE(HIGH) THEA HOWELL MD Sep 28, 2024 11:27
[2024-09-28] MEDS ORDERED: CLON0.1T PO (11:52)
--- NOTE | 2024-09-28 13:01 | DVHOP2 ---
Operative Report -Cardiology Report Details Date: 09/28/24 Preop Diagnosis: Shortness of breath on [id number] exertion with typical anginal pain to rule out significant coronary artery disease Postop Diagnosis: Coronary angiogram revealed three-vessel disease including severe borderline distal left main of 40%, distal right coronary artery, severe proximal left circumflex artery, and severe middle left anterior descending artery as well as 1st diagonal and 1st obtuse marginal branch, given diffuse nature of the vessel that she has a would recommend coronary artery bypass grafting Surgeon: Josue Fisher MD Anesthesiologist: Conscious sedation using25 mcg of fentanyl as well as a mg midazolam. It was given under the direct supervision of myself with the present attending nurses. Patient was monitored for total of 35 minutes without obvious complication Anesthesia: Local Consent: The patient was informed of the risks and benefits of the procedure. These include but are not limited to complications of anesthesia, postoperative infection, incomplete relief of symptoms, recurrence of symptoms, damage to blood vessels, nerves and tendons, deep venous thrombosis, pulmonary embolism and possible need for repeat surgery in the future. Indications for Surgery: Amaya Pena is a 74-year-old female with a significant PMH of HTN presented to the ED with the chief complaints of worsened shortness of Breath. Patient reported she has been having intermittent SOB for past 2 weeks, but for past 2 days patient has been having worsening SOB while lying down and sleeping (orthopnea and PND), SOB with a mild exertion with mild bilateral lower extremity swelling for past 2 weeks. Patient reported she has been noted that her heart rate is racing and her watch showed irregular heartbeat, patient is more consent which prompted her to visit ED. on my assessment patient reported flu-like symptoms in last couple of weeks. But denies nausea, vomiting, chest pain, dizziness, diaphoresis and other acute associated symptoms. Name of Procedure Performed 1. Left heart catheterization with left ventricular end-diastolic pressure measurement. 2. Selective right and left groin angiography utilizing right transradial approach. 3. Conscious sedation using25 mcg of fentanyl as well as a mg midazolam Procedure Details Procedure Details: Procedure note and vascular access: After informed consent was obtained risks, benefits, complications, alternatives were discussed in details with the patient who agrees to have the procedure done. At the beginning of the procedure, the right wrist and the right coronary artery were prepped and draped in the regular sterile fashion. The patient received conscious sedation with25 mcg of fentanyl as well as a mg midazolam, thereafter, systolic2 cc of 1% xylocaine was given to the right wrist area before a six Persian sheath was placed without difficulty using modified Seldinger technique. Patient received a cocktail of 2.5 mg of verapamil as well as 100 mcg of nitroglycerin intra-arterial to prevent vasospasm. Findings were as follows: 1. Left heart catheterization left ventricular end-diastolic pressure measu rement. With the help of tiger five Persian catheter as well as a J-tip wire we were able to cross the aortic valve and measured left ventricular end-diastolic pressure which shows normal saline mm of mercury. There was no gradient across the a ortic valve on the pullback. 2. Selective right and left coronary angiography utilizing right transradial approach: 1. The right coronary artery comes off the right coronary cusp, the proximal part of the right coronary artery there is long tubular lesion at 50%, with a is a tight 90% stenosis of the distal part of the right coronary artery before the bifurcation, then the right coronary artery bifurcates into large posterior descending artery as well as heart posterolateral branch. Do you posterolateral branch provide a large branches to the SA node. 2. The left main comes off the left coronary cusp, the distal part of the left main there is borderline lesion at 40 to 50%. Then the left main bifurcates into a large left anterior descending artery and medium-sized left circumflex vessel. 3. Left anterior descending artery is a large vessel, it has transapical course, it gives rise to two medium-sized diagonal branch, the 1st diagonal branch has long tubular lesion at 85-90%, the mid left anterior descending artery of the takeoff of the 2nd diagonal has tight eccentric lesion and 90%. 4. The left circumflex artery has proximal 90% stenosis, then the mid to distal part of the left circumflex artery after the takeoff of the 2nd diagonal branch has long tubular lesion at 90%. Impression and plan: 1. Patient has diffuse three-vessel disease including the distal left main, right coronary artery, left anterior descending artery, and the left circumflex, given the diffuse nature of the disease coronary artery bypass grafting surgery is considered of the best option for this patient revascularization. 2. I have discussed in detail with the findings with the patient and, her son over the phone in the agree for transfer to higher level of care. 3. I would recommend continuing IV heparin and baby aspirin and stopping the Plavix, patient will be admitted to the hospital until she transferred to another facility, I would recommend an echocardiogram to assess left ventricular systolic function proceed with goal-directed therapy. 4. Patient would need to be on high-dose statin to achieve LDL target of less than 50 mg/dL. Condition Fair [facility] Clinical Frailty Scale [facility] Clinical Frailty Scale: Mildly Frail Stress Test Stress Test Performed: No Disposition JOSUE FISHER MD Sep 28, 2024 13:01
--- NOTE | 2024-09-28 13:28 | DVHSR ---
APPROVED REPORT Exam: Nuclear Stress Test Indication: SOB Stress Tech: Lacie Pantoja Ht: 5 ft 6 in Wt: 164 lbs BSA: 1.84 m2 HR: 77 bpm BP: 126/77 mmHg BMI: 26.46 Rhythm: AFIB Medical History Medical History: htn, sleep orthopnea, afib, ckd, hyperlipidemia Allergies: No known drug allergies Stress Test Details Stress Test: Pharmacologic stress testing performed using 0.4 mg of regadenoson per 5 mL given IV ov er 10 seconds. HR Resting HR: 77 bpmMax Heart Rate (APMHR): 146.823337 bpm Max HR Achieved: 104 bpmTarget HR (85% APMHR): 124.342098 bpm % of APMHR: 71.23 Recovery HR: 86 bpm HR response to stress: Abnormal HR response to stress BP Resting BP: 126/77 mmHg Recovery BP: 138/58 mmHg ECG Resting ECG: AFIB Clinical Reason for Termination: See RN notes Nurse Comments Received patient from patient room. Patient is A&O x4 and on RA. Patient is connected to cardiac hossein tor. PIV flushes well. Reviewed POC and patient verbalizes understanding and gives written consent to test. Lexiscan stress test performed per protocol. security system technician administered the Cardiolite . Patient did not tolerate well. Test terminated early due to patient becoming non responsive, code a ssist called; please see RN notes.Ana Cristina Mendoza RECEIVING DISTRIBUTION STATION OPERATOR in stress lab when code assist called.Patients vital signs returned to baseline and patient was alert and oriented. Transferred to Nuclear Medicine with tech in stable condition. Stress ECG Conclusion Resting images shows near homogeneous uptake of radioactive tracer throughout the myocardium without evidence of myocardial infarction. Stress images shows near homogeneous uptake of radioactive tracer with the exception of a small segme nt of the inferior wall base to mid portion, likely representing diaphragmatic attenuation. Well-preserved left ventricular function estimated ejection fraction 68% Impression: Negative stress test for ischemia, low risk study NM EXAM: Myocardial Perfusion REST/STRESS Imaging Protocol: Rest Tc-99m/Stress Tc-99m 2 days Resting Data Rest SPECT myocardial perfusion imaging was performed in supine position 60 minutes following the int ravenous injection of 12.2 mCi of Tc-99m Sestamibi. Time of rest injection: 1410 Time of rest imagin Administration Route: IV Administration Site: Left AC Pharmacologic Stress Pharmacologic stress test was performed by injecting Regadenoson 0.4 mg IV push followed by the intra venous injection of 31.5 mCi of Tc-99m Sestamibi. Time of stress injection: 0815 Time of stress imagin Administration Route: IV Administration Site: Left AC Gated Stress SPECT was performed 60 minutes after stress injection. The images were gated to evaluate regional wall motion and calculate left ventricular ejection fracti on. Stress only was performed in the Supine position. Nuclear Conclusion ECG Findings: negative for ischemia Clinical Findings: negative for ischemia Nuclear Findings: negative for ischemia Exercise Capacity: not assessed Left Ventricular Function: normal Risk Study: low Resting images shows near homogeneous uptake of radioactive tracer throughout the myocardium without evidence of myocardial infarction. Stress images shows near homogeneous uptake of radioactive tracer with the exception of a small segme nt of the inferior wall base to mid portion, likely representing diaphragmatic attenuation. Well-preserved left ventricular function estimated ejection fraction 68% Impression: Negative stress test for ischemia, low risk study
[2024-09-28 15:00] LABS: Basophils # (auto) 0 10 ^3/uL (0-0.2); Basophils % (auto) 0.3 % (0.0-2.0); Eosinophils # (auto) 0 10 ^3/uL (0-0.8); Eosinophils % (auto) 0.3 % (0.0-7.0); Hematocrit 40.4 % (36.0-46.0); Hemoglobin 13.6 g/dL (12.2-16.2); Lymphocytes % (auto) 9.8 % (10.0-50.0); Mean Corpuscular Hemoglobin 31.1 pg (28.0-32.0); Mean Corpuscular Hgb Conc. 33.6 g/dL (32.0-36.0); Mean Corpuscular Volume 92.6 fL (80.0-100.0); Monocytes # (auto) 0.3 10 ^3/uL (0-1.3); Monocytes % (auto) 3.2 % (0.0-12.0); Neutrophils # (auto) 9.3 10 ^3/uL (1.6-8.6); Neutrophils % (auto) 86.4 % (37.0-80.0); Nucleated Red Blood Cells % 0.1 %; Platelet Count (auto) 295 10^3/uL (140-450); Red Blood Cells 4.36 10^6/uL (4.0-5.20); Red Cell Distribution Width 13.3 % (11.8-14.3); White Blood Cell 10.7 10^3/uL (4.4-10.8)
[2024-09-28 15:08] LABS: Chloride 104 mmol/L (98-107); Potassium 4.1 mmol/L (3.5-5.1); Sodium 142 mmol/L (136-145)
[2024-09-28 15:09] LABS: Anion Gap 10 (5-15); Carbon Dioxide 28 mmol/L (20-31)
[2024-09-28 15:14] LABS: BUN/Creatinine Ratio 15.4 (10.0-20.0); Blood Urea Nitrogen 18 mg/dL (9-23); Calcium 10.6 mg/dL (8.7-10.4); Glucose 147 mg/dL (74-106)
[2024-09-28 15:27] LABS: INR 1.07 (0.9-1.15); Partial Thromboplastin Time 28.8 SEC (24.5-34.5); Prothrombin Time 11.3 sec (9.3-11.8)
[2024-09-29] VITALS (8 sets, daily range): BP systolic 126–160; BP diastolic 52–82; PULSE 70–98; RESP 15–20; TEMP 97.6–98.8; O2SAT 98–100
[2024-09-29 07:55] LABS: Anion Gap 8 (5-15); Carbon Dioxide 27 mmol/L (20-31); Chloride 105 mmol/L (98-107); Potassium 4.6 mmol/L (3.5-5.1); Sodium 140 mmol/L (136-145)
[2024-09-29 07:57] LABS: Basophils # (auto) 0.1 10 ^3/uL (0-0.2); Basophils % (auto) 1.2 % (0.0-2.0); Eosinophils # (auto) 0.1 10 ^3/uL (0-0.8); Eosinophils % (auto) 0.9 % (0.0-7.0); Hematocrit 37.4 % (36.0-46.0); Hemoglobin 12.7 g/dL (12.2-16.2); Lymphocytes # (auto) 1.5 10 ^3/uL (0.4-5.4); Lymphocytes % (auto) 17.1 % (10.0-50.0); Mean Corpuscular Hemoglobin 31.2 pg (28.0-32.0); Mean Corpuscular Hgb Conc. 33.8 g/dL (32.0-36.0); Mean Corpuscular Volume 92.2 fL (80.0-100.0); Monocytes # (auto) 0.6 10 ^3/uL (0-1.3); Monocytes % (auto) 7.1 % (0.0-12.0); Neutrophils # (auto) 6.5 10 ^3/uL (1.6-8.6); Neutrophils % (auto) 73.7 % (37.0-80.0); Platelet Count (auto) 269 10^3/uL (140-450); Red Blood Cells 4.06 10^6/uL (4.0-5.20); Red Cell Distribution Width 12.8 % (11.8-14.3); White Blood Cell 8.8 10^3/uL (4.4-10.8)
[2024-09-29 07:58] LABS: Calcium 10.7 mg/dL (8.7-10.4)
[2024-09-29 08:01] LABS: BUN/Creatinine Ratio 15.5 (10.0-20.0); Blood Urea Nitrogen 17 mg/dL (9-23); Glucose 93 mg/dL (74-106)
[2024-09-29] MEDS: METOPROLOL SUCCINATE XL 50 MG TAB PO SCH (09:23)
--- NOTE | 2024-09-29 11:52 | DVHPN2 ---
Consult Progress Note Objective vital signs Vital Sign Date Time Temp Pulse Resp B/P (MAP) Pulse Ox O2 Delivery O2 Flow Rate FiO2 09/29/24 09:23 79 146/82 09/29/24 09:00 97.6 15 100 97.6 09/29/24 08:00 Room Air* 0 21 Total Intake and Output 09/28/24 09/28/24 09/29/24 15:00 23:00 07:00 Intake Total 0 ml 90 ml 200 ml Output Total 100 ml 350 ml Balance 0 ml -10 ml -150 ml medications Current Medications Medications Dose Ordered Sig/Radha Route Start Time Stop Time Status Last Admin Dose Admin Donepezil HCl 10 mg HS PO 09/27/24 22:00 09/28/24 22:53 10 MG Ceftriaxone Sodium 50 ml @ 100 mls/hr DAILY IV 09/27/24 03:00 09/29/24 09:22 100 MLS/HR Enoxaparin Sodium 70 mg Q12HR SC 09/27/24 22:00 09/28/24 22:54 70 MG Lorazepam 0.5 mg Q8HP PRN PO 09/27/24 13:30 09/29/24 10:51 0.5 MG Acetaminophen 650 mg Q6HP PRN PO 09/27/24 13:30 09/27/24 21:39 650 MG Atorvastatin Calcium 20 mg HS PO 09/27/24 22:00 09/28/24 22:53 20 MG Metoprolol Succinate 25 mg DAILY PO 09/29/24 10:00 09/29/24 09:23 25 MG laboratory and microbiology Laboratory Tests 09/29/24 07:14 Test 09/29/24 07:14 Range/Units Serum Glucose 93 74-106 mg/dL JULIAN YOU [facility] Sep 29, 2024 11:52
--- NOTE | 2024-09-29 11:59 | DVHPN2 ---
Subjective The patient is seen and examined at bedside. No chest pain today. Reviewed: Care Plan, H&P, Labs, Medications, Previous Orders, Radiology Changes from previous H/P or p: No Changes Objective Vitals Vital Signs Date Time Temp Pulse Resp B/P (MAP) Pulse Ox O2 Delivery O2 Flow Rate FiO2 09/29/24 09:23 79 146/82 09/29/24 09:00 97.6 15 100 97.6 09/29/24 08:00 Room Air* 0 21 Intake/Output Intake and Output 09/29/24 07:00 Intake Total 290 ml Output Total 450 ml Balance -160 ml Intake Oral 290 ml Output Urine Total 450 ml # Bowel Movements 1 General Appearance: Alert, Oriented X3, Cooperative, No acute distress HEENT: Atraumatic, PERRLA, EOMI, Mucous membr. moist/pink Neck: Supple Lungs: Clear to auscultation, Normal air movement Cardiovascular: Regular rate, Normal S1, Normal S2, No murmurs, Gallops, Rubs Neuro: Cranial nerves 3-12 NL Psych/Mental Status: Mental status NL Medications Current Medications Medications Dose Ordered Sig/Radha Route Start Time Stop Time Status Last Admin Dose Admin Donepezil HCl 10 mg HS PO 09/27/24 22:00 09/28/24 22:53 10 MG Ceftriaxone Sodium 50 ml @ 100 mls/hr DAILY IV 09/27/24 03:00 09/29/24 09:22 100 MLS/HR Lorazepam 0.5 mg Q8HP PRN PO 09/27/24 13:30 09/29/24 10:51 0.5 MG Acetaminophen 650 mg Q6HP PRN PO 09/27/24 13:30 09/27/24 21:39 650 MG Metoprolol Succinate 25 mg DAILY PO 09/29/24 10:00 09/29/24 09:23 25 MG Atorvastatin Calcium 40 mg HS PO 09/29/24 22:00 UNV Sertraline HCl 25 mg DAILY PO 09/30/24 10:00 UNV Heparin Sodium/ Dextrose 250 ml @ 9.06 mls/hr Q24H IV 09/29/24 12:00 UNV Morphine Sulfate 2 mg Q4HPRN PRN IV 09/29/24 12:00 UNV Laboratory Results Laboratory Tests 09/29/24 07:14 Chemistry Test 09/28/24 14:47 09/29/24 07:14 Calcium Level 10.6 mg/dL (8.7-10.4) H 10.7 mg/dL (8.7-10.4) H Coagulation Test 09/28/24 14:47 Prothrombin Time 11.3 sec (9.3-11.8) Prothrombin Time INR 1.07 (0.9-1.15) Activated Partial Thromboplast Time 28.8 SEC (24.5-34.5) Urinalysis Test 09/26/24 21:15 Urine Color Light-yellow (Yellow) Urine Clarity Ex.turbid (Clear) Urine pH 5.5 (5.0-9.0) Urine Specific [place] 1.006 (1.001-1.035) Urine Protein Negative (Negative) Urine Ketones Negative (Negative) Urine Blood 1+ /uL (Negative) H Urine Nitrite Negative (Negative) Urine Bilirubin Negative (Negative) Urine Urobilinogen Normal mg/dL (Negative) Urine Leukocyte Esterase 3+ /uL (Negative) Urine RBC 10 /hpf (0 - 4) Urine WBC 1859 /hpf (0 - 5) Urine WBC Clumps Present /hpf (None Seen) Urine Squamous Epithelial Cells None seen /hpf (<5) Urine Bacteria None seen /hpf (None Seen) Urine Glucose Normal mg/dL (Normal) Labs and/or images reviewed: Labs reviewed by me Assessment/Plan Assessment/Plan Coronary artery disease with Multivessel disease status post cardiac catheterization. Now waiting to transfer to higher level of care for CABG per hairspring vibrator's recommendation Atrial fibrillation Hypertension Urinary tract infection Chronic kidney disease stage 3 Status post bradycardia and 5 sec cardiac arrest during stress test Plan: Continuing current management. Continuing with heparin drip. Continuing with hypertensive medication. Continuing with IV Rocephin. Waiting to transfer the patient to higher level of care for CABG This medical document was created using an electronic medical record system with M[employer]rency direct computerized dictation system. Although this document has been carefully reviewed, there may still be some phonetic and typographical errors. These areas are purely typographical due to imperfections of the software programs, and do not reflect any compromise in the patient's medical care. Plan discussed with: Patient Date of Service: Sep 29, 2024 Billing Provider: RAS SOMERS MD Common Visit Codes: [id number] INP/OBS CARE(HIGH) RAS SOMERS MD Sep 29, 2024 11:59
[2024-09-29] MEDS: HEPARIN DRIP/D5W 100UNITS/ML 250 ML IV SCH (12:22)
[2024-09-29] MEDS: SERTRALINE HCL 50 MG TAB PO ONE (12:25)
--- NOTE | 2024-09-29 12:53 | DVHPN2 ---
Consult Progress Note Date Seen: Sep 29, 2024 Subjective Review of Systems: CVS:Normal, RESPIRATORY:Normal, NEURO:Normal Other Systems: Denies any cardiac symptoms Objective vital signs Vital Sign Date Time Temp Pulse Resp B/P (MAP) Pulse Ox O2 Delivery O2 Flow Rate FiO2 09/29/24 09:23 79 146/82 09/29/24 09:00 97.6 15 100 97.6 09/29/24 08:00 Room Air* 0 21 Total Intake and Output 09/28/24 09/28/24 09/29/24 15:00 23:00 07:00 Intake Total 0 ml 90 ml 200 ml Output Total 100 ml 350 ml Balance 0 ml -10 ml -150 ml medications Current Medications Medications Dose Ordered Sig/Radha Route Start Time Stop Time Status Last Admin Dose Admin Donepezil HCl 10 mg HS PO 09/27/24 22:00 09/28/24 22:53 10 MG Ceftriaxone Sodium 50 ml @ 100 mls/hr DAILY IV 09/27/24 03:00 09/29/24 09:22 100 MLS/HR Lorazepam 0.5 mg Q8HP PRN PO 09/27/24 13:30 09/29/24 10:51 0.5 MG Acetaminophen 650 mg Q6HP PRN PO 09/27/24 13:30 09/27/24 21:39 650 MG Metoprolol Succinate 25 mg DAILY PO 09/29/24 10:00 09/29/24 09:23 25 MG Atorvastatin Calcium 40 mg HS PO 09/29/24 22:00 Sertraline HCl 25 mg DAILY PO 09/30/24 10:00 Heparin Sodium/ Dextrose 250 ml @ 9 mls/hr Q24H IV 09/29/24 12:00 09/29/24 12:22 9 MLS/HR Morphine Sulfate 2 mg Q4HPRN PRN IV 09/29/24 12:00 Examination: GENERAL:Abnormal (Anxious), LUNGS:Normal, CVS:Normal, NEURO:Normal laboratory and microbiology Laboratory Tests 09/29/24 07:14 Test 09/29/24 07:14 Range/Units Serum Glucose 93 74-106 mg/dL Problem List/Assessment/Plan Problem List/Assessment/Plan Cardiac arrest during regadenoson stress test Severe coronary artery disease with multivessel disease including borderline distal left main disease New onset unspecified Atrial Fibrillation, stage III with secondary hypercoagulable state Uncontrolled HTN Dyslipidemia MAXIMILIANO likely on CKD Anxiety Plan/Recommendation (Dr. Gallegos) * Continue monitoring on telemetry unit, notify if sudden changes * Echocardiogram showed normal LVEF 55% with a grade 1 diastolic dysfunction * Antiarrhythmic therapy, hold as symptoms developed > 48h * Rate-controlling agents, metoprolol 25 mg * Antiplatelet therapy, ASA only. Continue lipid-lowering agent * Transfer to [facility] for cardiothoracic evaluation * Initiate Sertraline given increased anxiety The patient who presented with c/o SOB, HOLLY and new onset atrial fibrillation at a controlled rate underwent a regadenoson stress test. Intra-procedure the patient experienced brief cardiac arrest for approximately 5 seconds recovering a heart rhythm without the need of ACLS pharmacological intervention. At that time, she was deemed to undergo a cardiac catheterization and coronary angiogram for further assessment where she was found with severe coronary artery disease with multivessel disease including borderline distal left main disease. She has been initiated on a heparin drip and plan is to transfer to [facility] for cardiothoracic evaluation. Thank you for allowing us to participate in this patient's care. Please call if you have any questions or concerns. This medical document was created using an electronic medical record system with voice recognition software and computerized dictation system. Although this document has been carefully reviewed, there might still be some phonetic and typographical errors. Occasional wrong-word or ``sound-alike substitutions may have occurred due to the inherent limitations of voice recognition software. These areas are purely typographical due to imperfections of the software programs and do not reflect any compromise in the patient's medical care. Please read the chart carefully and recognize, using context, where these substitutions have occurred. Plan discussed with: Patient, Other Date of Service: Sep 29, 2024 Billing Provider: ROYCE GATES MD Cardiology Common Codes: [id number] [facility](JULIAN Burton [facility] Sep 29, 2024 12:53
[2024-09-29 19:13] LABS: Partial Thromboplastin Time 28.4 SEC (24.5-34.5); Prothrombin Time 10.6 sec (9.3-11.8)
[2024-09-29] MEDS: HEPARIN SODIUM (PORCINE) 5000 UNITS/ML 1ML VIAL IV ONE (20:34)
[2024-09-29] MEDS: ATORVASTATIN 20 MG TAB PO SCH (22:26)
[2024-09-29] MEDS: MELATONIN 5 MG TAB PO ONE (23:36)
[2024-09-30 01:00] VITALS: BP 126/52; PULSE 88; RESP 18; TEMP 97.5; O2SAT 97
[2024-09-30 03:11] LABS: Basophils # (auto) 0.1 10 ^3/uL (0-0.2); Basophils % (auto) 1.3 % (0.0-2.0); Eosinophils # (auto) 0.1 10 ^3/uL (0-0.8); Eosinophils % (auto) 0.7 % (0.0-7.0); Hematocrit 36.8 % (36.0-46.0); Hemoglobin 12.2 g/dL (12.2-16.2); Lymphocytes # (auto) 1.3 10 ^3/uL (0.4-5.4); Lymphocytes % (auto) 14.4 % (10.0-50.0); Mean Corpuscular Hemoglobin 30.8 pg (28.0-32.0); Mean Corpuscular Hgb Conc. 33.2 g/dL (32.0-36.0); Mean Corpuscular Volume 92.5 fL (80.0-100.0); Monocytes # (auto) 0.6 10 ^3/uL (0-1.3); Monocytes % (auto) 6.4 % (0.0-12.0); Neutrophils # (auto) 7.1 10 ^3/uL (1.6-8.6); Neutrophils % (auto) 77.2 % (37.0-80.0); Platelet Count (auto) 259 10^3/uL (140-450); Red Blood Cells 3.98 10^6/uL (4.0-5.20); Red Cell Distribution Width 13.1 % (11.8-14.3); White Blood Cell 9.2 10^3/uL (4.4-10.8)
[2024-09-30 03:25] LABS: Partial Thromboplastin Time 27.8 SEC (24.5-34.5); Prothrombin Time 10.6 sec (9.3-11.8)
[2024-09-30 03:27] LABS: Albumin 4.4 g/dL (3.2-4.8); Anion Gap 6 (5-15); Calcium 10.1 mg/dL (8.7-10.4); Carbon Dioxide 25 mmol/L (20-31); Chloride 105 mmol/L (98-107); Glucose 98 mg/dL (74-106); Potassium 4.2 mmol/L (3.5-5.1)
[2024-09-30 03:28] LABS: Bilirubin, Total 0.3 mg/dL (0.2-1.0); Total Protein 6.9 g/dL (5.7-8.2)
[2024-09-30 03:29] LABS: Alanine Aminotransferase < 9 U/L (7-40); Alkaline Phosphatase 126 U/L (46-116); Aspartate Aminotransferase 9 U/L (13-40); Sodium 136 mmol/L (136-145)
[2024-09-30] MEDS ORDERED: HEPARIN DRIP/D5W 100UNITS/ML 250 ML IV SCH ×3 (04:00→17:45)
[2024-09-30] MEDS: HEPARIN SODIUM (PORCINE) 5000 UNITS/ML 1ML VIAL IV ONE (04:10)
[2024-09-30 04:20] LABS: BUN/Creatinine Ratio 16.8 (10.0-20.0); Blood Urea Nitrogen 17 mg/dL (9-23)
[2024-09-30 05:00] VITALS: BP 154/68; PULSE 77; RESP 18; TEMP 97.5; O2SAT 98
[2024-09-30 08:00] VITALS: PULSE 99
[2024-09-30 09:00] VITALS: BP 126/56; PULSE 65; RESP 16; TEMP 97.6; O2SAT 98
[2024-09-30] MEDS: NITROGLYCERIN 0.4 MG SL TAB SL ONE (09:10)
[2024-09-30] MEDS: SERTRALINE HCL 50 MG TAB PO SCH (09:15)
[2024-09-30] MEDS: MORPHINE SULFATE 4 MG/ML SYR/VIAL IV PRN (09:16)
[2024-09-30] MEDS: ASPirin 81 mg TAB PO SCH (09:16)
[2024-09-30] MEDS: HEPARIN DRIP/D5W 100UNITS/ML 250 ML IV SCH (09:20)
[2024-09-30 10:34] LABS: INR 1.12 (0.9-1.15); Prothrombin Time 11.8 sec (9.3-11.8)
[2024-09-30 10:59] LABS: Partial Thromboplastin Time > 139.0 SEC (24.5-34.5)
--- NOTE | 2024-09-30 11:05 | DVHDS2 ---
Discharge Summary Date of Admission Sep 26, 2024 at 10:48 Date of Discharge: Sep 30, 2024 Labs/Diagnostic Data: Laboratory Results Test 09/30/24 09:36 09/30/24 02:51 09/27/24 20:00 09/27/24 19:50 Prothrombin Time 11.8 sec (9.3-11.8) Prothrombin Time INR 1.12 (0.9-1.15) Activated Partial Thromboplast Time > 139.0 SEC (24.5-34.5) White Blood Count 9.2 10^3/uL (4.4-10.8) Red Blood Count 3.98 10^6/uL (4.0-5.20) Hemoglobin 12.2 g/dL (12.2-16.2) Hematocrit 36.8 % (36.0-46.0) Mean Corpuscular Volume 92.5 fL (80.0-100.0) Mean Corpuscular Hemoglobin 30.8 pg (28.0-32.0) Mean Corpuscular Hemoglobin Concent 33.2 g/dL (32.0-36.0) Red Cell Distribution Width 13.1 % (11.8-14.3) Platelet Count 259 10^3/uL (140-450) Mean Platelet Volume 9.7 fL (6.9-10.8) Neutrophils (%) (Auto) 77.2 % (37.0-80.0) Lymphocytes (%) (Auto) 14.4 % (10.0-50.0) Monocytes (%) (Auto) 6.4 % (0.0-12.0) Eosinophils (%) (Auto) 0.7 % (0.0-7.0) Basophils (%) (Auto) 1.3 % (0.0-2.0) Neutrophils # (Auto) 7.1 10 ^3/uL (1.6-8.6) Lymphocytes # (Auto) 1.3 10 ^3/uL (0.4-5.4) Monocytes # (Auto) 0.6 10 ^3/uL (0-1.3) Eosinophils # (Auto) 0.1 10 ^3/uL (0-0.8) Basophils # (Auto) 0.1 10 ^3/uL (0-0.2) Nucleated Red Blood Cells 0.0 % Sodium Level 136 mmol/L (136-145) Potassium Level 4.2 mmol/L (3.5-5.1) Chloride Level 105 mmol/L (98-107) Carbon Dioxide Level 25 mmol/L (20-31) Anion Gap 6 (5-15) Blood Urea Nitrogen 17 mg/dL (9-23) Creatinine 1.01 mg/dL (0.550-1.02) Glomerular Filtration Rate Calc 58 mL/min (>90) BUN/Creatinine Ratio 16.8 (10.0-20.0) Serum Glucose 98 mg/dL (74-106) Calcium Level 10.1 mg/dL (8.7-10.4) Total Bilirubin 0.3 mg/dL (0.2-1.0) Aspartate Amino Transferase (AST) 9 U/L (13-40) Alanine Aminotransferase (ALT) < 9 U/L (7-40) Alkaline Phosphatase 126 U/L (46-116) Total Protein 6.9 g/dL (5.7-8.2) Albumin 4.4 g/dL (3.2-4.8) Influenza Type A Antigen Negative (Negative) Influenza Type B Antigen Negative (Negative) SARS-CoV-2 Antigen (Rapid) Negative (NEGATIVE) Test 09/27/24 10:25 09/26/24 21:15 09/26/24 01:24 09/26/24 00:01 Hemoglobin A1c 5.5 % A1C (<5.7) Magnesium Level 2.2 mg/dL (1.6-2.6) Triglycerides Level 119 mg/dL (< 150) Cholesterol Level 211 mg/dL (< 200) LDL Cholesterol 151 mg/dL (< 100) HDL Cholesterol 37 mg/dL (40-59) Urine Color Light-yellow (Yellow) Urine Clarity Ex.turbid (Clear) Urine pH 5.5 (5.0-9.0) Urine Specific [place] 1.006 (1.001-1.035) Urine Protein Negative (Negative) Urine Ketones Negative (Negative) Urine Blood 1+ /uL (Negative) Urine Nitrite Negative (Negative) Urine Bilirubin Negative (Negative) Urine Urobilinogen Normal mg/dL (Negative) Urine Leukocyte Esterase 3+ /uL (Negative) Urine RBC 10 /hpf (0 - 4) Urine WBC 1859 /hpf (0 - 5) Urine WBC Clumps Present /hpf (None Seen) Urine Squamous Epithelial Cells None seen /hpf (<5) Urine Bacteria None seen /hpf (None Seen) Urine Glucose Normal mg/dL (Normal) Urine Opiates Screen Neg (NEGATIVE) Urine Fentanyl Screen Neg (NEGATIVE) Urine Barbiturates Screen Neg (NEGATIVE) Urine Phencyclidine Screen Neg (NEGATIVE) Urine Amphetamines Screen Neg (NEGATIVE) Urine Benzodiazepines Screen Neg (NEGATIVE) Urine Cocaine Screen Neg (NEGATIVE) Urine Cannabinoids Screen Neg (NEGATIVE) Troponin I High Sensitivity 12 ng/L (</=34) B-Type Natriuretic Peptide 90.76 pg/mL (0-100) Thyroid Stimulating Hormone (TSH) 4.71 uIU/mL (0.55-4.78) Free Thyroxine (T4) Calculated 1.19 ng/dL (0.89-1.76) Other Laboratory Tests 09/30/24 02:51 Brief Hx & Hospital Course: see dictated note Condition at Discharge: Fair Final Diagnosis/Problems List cad Discharge Disposition: Acute Care Facility Discharge Instruct/Medications Diet: Cardiac 2g Na,low cholest Activity: No Restrictions, As Tolerated Follow Up/Referral: fu with pcp/cardiology Medications: per dec Discharge Statement: "Patient was advised to return to the ER or call 911 if any headaches, dizziness, shortness of breath, chest pain, abdominal pain, bleeding, fevers, or worsening of medical condition. Patient was counseled about treatment plan, medications, possible side effects, patientverbalized understanding. All questions were answered to the best of my ability. This discharge took greater then 30 minutes in planning, reviewing documentation, counseling the patient, and discussing with other team members." ASSESSMENT ASSESSMENT Assessment cad Date of Service: Sep 30, 2024 Billing Provider: THEA HOWELL MD Common Visit Codes: [id number] DISCH DAY >30min THEA HOWELL MD Sep 30, 2024 11:05
--- NOTE | 2024-09-30 11:16 | DVHDS ---
DATE OF DISCHARGE: 09/30/2024 DAY OF ADMISSION: 09/26/2024 DATE OF TRANSFER: 09/30/2024 The patient is a 74-year-old lady who was initially admitted for intermittent periods of shortness of breath and mild lower extremity edema and orthopnea with irregular heartbeat. HOSPITAL COURSE: The patient was noted to be in atrial fibrillation. The patient had echocardiogram done that showed ejection fraction of 55%. She had evidence of UTI. LDL was elevated at 151. The patient's TSH was 4.7. The patient was to undergo a Cardiolite stress test but developed bradycardia and posturing around that time. The patient subsequently was taken for a coronary angiography that showed evidence of diffuse triple-vessel disease and was suggested to undergo coronary artery bypass grafting. The patient will now be transferred for coronary artery bypass to a higher level of care. FINAL DIAGNOSES: * Coronary artery disease, status post coronary angiography. * Atrial fibrillation with secondary hypercoagulable state. * Hypertension. * Urinary tract infection. * Status post bradycardia. * Chronic kidney disease stage IIIA. * Hyperlipidemia. Time spent in discharge planning and review of plan with the patient, nursing, and paperwork was 39 minutes. MD KYLE Sanchez/KELLEY TID: [id number] RECEIPT: [id number]
[2024-09-30 12:52] LABS: INR 1.09 (0.9-1.15); Prothrombin Time 11.5 sec (9.3-11.8)
[2024-09-30 13:00] VITALS: BP 146/76; PULSE 66; RESP 16; TEMP 98.4; O2SAT 99
--- NOTE | 2024-09-30 13:29 | DVHPN2 ---
Consult Progress Note Date Seen: Sep 30, 2024 Subjective Review of Systems: CVS:Normal, RESPIRATORY:Normal, NEURO:Normal Objective vital signs Vital Sign Date Time Temp Pulse Resp B/P (MAP) Pulse Ox O2 Delivery O2 Flow Rate FiO2 09/30/24 13:00 98.4 66 16 146/76 (99) 99 98.4 09/30/24 08:15 Nasal Cannula* 2 28 Total Intake and Output 09/29/24 09/29/24 09/30/24 15:00 23:00 07:00 Intake Total 50 ml 620 ml 100 ml Output Total 200 ml Balance 50 ml 620 ml -100 ml medications Current Medications Medications Dose Ordered Sig/Radha Route Start Time Stop Time Status Last Admin Dose Admin Donepezil HCl 10 mg HS PO 09/27/24 22:00 09/29/24 22:25 10 MG Ceftriaxone Sodium 50 ml @ 100 mls/hr DAILY IV 09/27/24 03:00 09/30/24 09:33 100 MLS/HR Lorazepam 0.5 mg Q8HP PRN PO 09/27/24 13:30 09/29/24 19:37 0.5 MG Acetaminophen 650 mg Q6HP PRN PO 09/27/24 13:30 09/27/24 21:39 650 MG Metoprolol Succinate 25 mg DAILY PO 09/29/24 10:00 09/30/24 09:15 25 MG Atorvastatin Calcium 40 mg HS PO 09/29/24 22:00 09/29/24 22:26 40 MG Sertraline HCl 25 mg DAILY PO 09/30/24 10:00 09/30/24 09:15 25 MG Morphine Sulfate 2 mg Q4HPRN PRN IV 09/29/24 12:00 09/30/24 09:16 2 MG Aspirin 81 mg DAILY PO 09/30/24 10:00 09/30/24 09:16 81 MG Heparin Sodium/ Dextrose 250 ml @ 15 mls/hr [id number] IV 09/30/24 08:45 09/30/24 12:54 12 MLS/HR Examination: LUNGS:Normal, CVS:Normal, NEURO:Normal laboratory and microbiology Laboratory Tests 09/30/24 02:51 Test 09/30/24 02:51 Range/Units Serum Glucose 98 74-106 mg/dL Problem List/Assessment/Plan Problem List/Assessment/Plan Cardiac arrest during regadenoson stress test Severe coronary artery disease with multivessel disease including borderline distal left main disease New onset unspecified Atrial Fibrillation, stage III with secondary hypercoagulable state Uncontrolled HTN Dyslipidemia MAXIMILIANO likely on CKD Anxiety Plan/Recommendation (Dr. Gallegos) * Continue monitoring on telemetry unit, notify if sudden changes * Echocardiogram showed normal LVEF 55% with a grade 1 diastolic dysfunction * Antiarrhythmic therapy, hold as symptoms developed > 48h * Rate-controlling agent, metoprolol 25 mg * Antiplatelet therapy, ASA only. Continue lipid-lowering agent * Transfer to [facility] for cardiothoracic evaluation: [facility] accepted The patient who presented with c/o SOB, HOLLY and new onset atrial fibrillation at a controlled rate underwent a regadenoson stress test. Intra-procedure the patient experienced brief cardiac arrest for approximately 5 seconds recovering a heart rhythm without the need of ACLS pharmacological intervention. At that time, she was deemed to undergo a cardiac catheterization and coronary angiogram for further assessment where she was found with severe coronary artery disease with multivessel disease including borderline distal left main disease. She has been initiated on a heparin drip and plan is to transfer to [facility] for cardiothoracic evaluation. Thank you for allowing us to participate in this patient's care. Please call if you have any questions or concerns. This medical document was created using an electronic medical record system with voice recognition software and computerized dictation system. Although this document has been carefully reviewed, there might still be some phonetic and typographical errors. Occasional wrong-word or ``sound-alike substitutions may have occurred due to the inherent limitations of voice recognition software. These areas are purely typographical due to imperfections of the software programs and do not reflect any compromise in the patient's medical care. Please read the chart carefully and recognize, using context, where these substitutions have occurred. Plan discussed with: Patient, Other Date of Service: Sep 30, 2024 Billing Provider: ROYCE GATES MD Cardiology Common Codes: [id number] HOSP CARE(High WIGGINSJULIAN SHUKLA [facility] Sep 30, 2024 13:29
[2024-09-30 13:57] LABS: Partial Thromboplastin Time > 139.0 SEC (24.5-34.5)
[2024-09-30 17:00] VITALS: BP 143/53; PULSE 66; RESP 14; TEMP 97.5; O2SAT 96
[2024-09-30 17:27] LABS: INR 1.03 (0.9-1.15); Prothrombin Time 10.9 sec (9.3-11.8)
== END 2024-09-30 17:45 | disposition short-term general hospital (02) | DRG 286 ==
LOC: ER 23:35 → TELE 09-26 10:48 → TELE-WESTW 09-26 15:27
PROVIDERS: ADMIT Student in an Organized Health Care Education/Training Program; ATTEND Internal Medicine
PROC: B211YZZ Fluoroscopy of Multiple Coronary Arteries using Other Contrast (ICD-10-PCS; principal; 2024-09-28)
PROC: 4A023N7 Measurement of Cardiac Sampling and Pressure, Left Heart, Percutaneous Approach (ICD-10-PCS; 2024-09-28)
DX: I25.10 Atherosclerotic heart disease of native coronary artery without angina pectoris (principal); I46.9 Cardiac arrest, cause unspecified; N30.00 Acute cystitis without hematuria; I13.0 Hypertensive heart and chronic kidney disease with heart failure and stage 1 through stage 4 chronic kidney disease, or unspecified chronic kidney disease; D68.69 Other thrombophilia; D72.829 Elevated white blood cell count, unspecified; F41.9 Anxiety disorder, unspecified; I48.91 Unspecified atrial fibrillation; R00.1 Bradycardia, unspecified; N18.31 Chronic kidney disease, stage 3a; E78.5 Hyperlipidemia, unspecified; Z82.49 Family history of ischemic heart disease and other diseases of the circulatory system
CPT/HCPCS: 36415; 71045; 78452; 80048; 80053; 80061; 80307; 81001; 83036; 83735; 83880; 84439; 84443; 84484; 85025; 85610; 85730; 87426; 87804; 93005; 93017; 93306; 93458; 96374; 99152; 99291; G0378; J2250; Q9967